=== PATIENT | male | born 1980 | race Caucasian/White ===

== ENCOUNTER 2019-06-04 05:17 | Inpatient (IN) | payer SELFPAY ==
[2019-06-04] MEDS ORDERED: NALOXONE HCL 2 MG/2 ML VIAL ONE (05:25)
[2019-06-04] MEDS ORDERED: NA CHLORIDE 0.9% 1,000 ML ONE ×2 (05:26→06:12)
[2019-06-04] MEDS ORDERED: D50W 25 GM/50 ML SYRINGE/VIAL IV ONE (05:28)
[2019-06-04] MEDS ORDERED: RSI MEDICATION KIT IV ONE (05:39)
[2019-06-04 05:41] LABS: Absolute Lymphocytes (CBC) 0.6 K/uL (0.7-4.9); Basophils % 0.3 % (0-1.3); Hematocrit 42.4 % (39.6-49.0); MPV 9.1 fL (7.6-11.3); RBC Red Blood Cell Count 4.54 M/uL (4.33-5.43)
[2019-06-04 05:55] LABS: Barbiturates NEGATIVE (NEGATIVE); Benzodiazepines POSITIVE (NEGATIVE); Cocaine NEGATIVE (NEGATIVE); METHAMPHETAM POSITIVE (NEGATIVE); Methadone NEGATIVE (NEGATIVE); Opiates NEGATIVE (NEGATIVE); Phencyclidine NEGATIVE (NEGATIVE); THC Cannibis POSITIVE (NEGATIVE)
[2019-06-04 06:05] LABS: Urine Blood TRACE (NEG); Urine Glucose NEGATIVE (NEG); Urine Protein 3+ (NEG); Urine pH 5.5 (5.0-7.0)
[2019-06-04] MEDS ORDERED: ETOMIDATE 20 MG/10 ML VIAL IV ONE (06:11)
[2019-06-04] MEDS ORDERED: SUCCINYLCHOLINE 20 MG/ML (10 ML) IV ONE (06:11)
[2019-06-04 06:17] LABS: ALT/SGPT 34 U/L (12-78); AST/SGOT 31 U/L (15-37); Alkaline Phosphatase 51 U/L (45-117); BUN Blood Urea Nitrogen 16 mg/dL (7-18); Bicarbonate 24 mmol/L (21-32); Bilirubin Direct < 0.1 mg/dL (0-0.2); Bilirubin Total 0.4 mg/dL (0.2-1.0); Glucose Level 62 mg/dL (74-106); Potassium 4.2 mmol/L (3.5-5.1); Protein, Total 7.3 g/dL (6.4-8.2); Sodium Level 146 mmol/L (136-145)
[2019-06-04 06:47] LABS: Blood Morphology Comment NOT SEEN (NOT SEEN); Platelet Estimate ADEQ; Urine White Blood Cell Casts OK
[2019-06-04 07:19] LABS: Arterial Blood Carboxyhemoglob 1.1 % (0-1.5); Blood Gas Oxyhemoglobin 97.3 % (94-97); Blood O2 Saturation 99.3 % (92-98.5)
--- NOTE | 2019-06-04 07:32 | RAD REPORT ---
EXAM DESCRIPTION: CT - Head Brain Wo Cont - 06/04/2019 7:11 am CLINICAL HISTORY: MENTAL STATUS CHANGE Headache, drowsiness COMPARISON: No comparisons TECHNIQUE: All CT scans are performed using dose optimization technique as appropriate and may inclu de automated exposure control or mA/KV adjustment according to patient size. FINDINGS: No intracranial hemorrhage, hydrocephalus or extra-axial fluid collection.No areas of brai n edema or evidence of midline shift. The paranasal sinuses and mastoids are clear. The calvarium is intact. IMPRESSION: No acute intracranial abnormality.
[2019-06-04 07:45] LABS: ALT/SGPT 30 U/L (12-78); AST/SGOT 37 U/L (15-37); Albumin 3.4 g/dL (3.4-5.0); Alkaline Phosphatase 42 U/L (45-117); Bilirubin Direct 0.1 mg/dL (0-0.2); Bilirubin Total 0.3 mg/dL (0.2-1.0); Ferritin 187.3 ng/mL (26-388); Lipase 75 U/L (73-393); Protein, Total 6.1 g/dL (6.4-8.2); Troponin (Emerg Dept Use Only) 0.02 ng/mL (0.0-0.045)
[2019-06-04 07:46] LABS: C-Reactive Protein < 2.90 mg/L (<3.00)
--- NOTE | 2019-06-04 08:03 | ER ---
Nurse's Notes [facility] Name: Gabriele Neumann Age: 39 yrs Sex: Male : 10/14/1979 Arrival Date: 06/04/2019 Time: 05:18 Bed 3 Private MD: Diagnosis: Acidosis;Hypoxemia;Altered mental status, unspecified;Pneumonia, unspecified organism Presentation: 06/03 05:04 Method Of Arrival: EMS: [facility] 05:04 Acuity: FADI 2 05:04 Chief complaint: EMS states: that pt was found in the tub of a hotel room by [facility] staff. Police were contacted along with EMS. Pt is responsive to painful stimuli only. Coronavirus screen: Proceed with normal triage. Ebola Screen: Unable to complete the Ebola screening because: The patient is disoriented. Onset of symptoms was June 04, 2019. Care prior to arrival: Medication(s) given: Normal saline infusion, 500 mL, IV initiated. 18 GA, in the left antecubital area, Glucose check: 69. 05:15 Initial Sepsis Screen: Does the patient meet any 2 criteria? RR > 20 per min. Altered bb Mental Status. Does the patient have a suspected source of infection? No. Patient's initial sepsis screen is negative. Risk Assessment: Do you want to hurt yourself or someone else? Unable to obtain. Historical: - Allergies: 05:23 Unable to obtain; fc - Home Meds: 05:23 Unable to obtain [Active]; fc - PMHx: 05:23 Unable to obtain; fc - PSHx: 05:23 Unable to obtain; fc - Immunization history:: Adult Immunizations unknown. - Social history:: Smoking status: unknown. Screenin:04 Abuse screen: Denies threats or abuse. Nutritional screening: No deficits noted. Tuberculosis screening: No symptoms or risk factors identified. 05:15 Fall Risk Secondary diagnosis (15 points) impaired mobility, IV access (20 points). bb Mental Status- Overestimates/Forgets Limitations (15 pts.). Total Rm Fall Scale indicates High Risk Score (45 or more points). Fall prevention measures have been instituted. Side Rails Up X 2 Frequent Obs/Assessments Occuring. Assessment: 05:25 General: Appears slender, unkempt, Behavior is responsive to pain. Pain: Unable to use bb pain scale. FLACC scale score is 2 out of 10. Neuro: Level of Consciousness is obtunded, Oriented to none. Cardiovascular: Heart tones S1 S2 present Capillary refill < 3 seconds Pulses are all present. Respiratory: Airway is patent Respiratory effort is labored, with retractions, Respiratory pattern is tachypnea GI: Abdomen is flat. Derm: Skin is diaphoretic. Musculoskeletal: Capillary refill < 3 seconds. 05:35 Reassessment: Dr Hoffman notified pt diaphoretic, tachypneic, labored, decision for bb intubation made respiratory notified. 05:38 Reassessment: Dr Hoffman, Monik RT, Igor RT, dee RN, Jose Luis RN, Capo RN, Javad floor technician, bb and Danyelle floor technician at bedside for intubation pt prepared with NRB, plastic cover, and glidescope at bedside all unnecessary personal stepped out of room leaving Dr Hoffman and Monik GARCIA for ETT placement. 05:44 Reassessment: ETT 7.5, 23 cm at the teeth placed with conformation of color change, bb X-ray at bedside for post intubation chest X-ray. 05:50 Reassessment: pt desatting, Dr Hoffman notified, ETT pulled back no improvement, ETT bb removed, pt bagged with BVM. 05:51 Respiratory: Respiratory effort is apneic. bb 06:05 Reassessment: Monik Ivy RT, Igor RT at bedside for reintubation. bb 06:08 Reassessment: reintubation completed, pt has 7.5 ETT with color change and bilateral bb breath sounds, 22 cm at the lips, X-ray standing by for post intubation conformation of placement. 06:41 Reassessment: Pt resting quietly, ETT in place, NG tube in place, villalpando catheter in bb place, IV sites intact, patent with fluids infusing. 06:56 Reassessment: pt to CT scan via stretcher accompanied by Capo LANDA and RT tech, on monitor bb with ventilator. 07:10 Reassessment: report given to Paulina LANDA. bb 07:15 Reassessment: Dr. Young at bedside assessing pt. jl7 07:20 Reassessment: RT Tavares at bedside assessing ventilator. jl7 07:30 General: Appears in no apparent distress. uncomfortable, Behavior is responsive to jl7 pain. Pain: Unable to use pain scale. FLACC scale score is 1 out of 10. Neuro: Level of Consciousness is responds to painful stimuli. Oriented to none. Cardiovascular: Heart tones present Patient's skin is warm and dry. Pulses are all present. Respiratory: Airway via oral intubation Respiratory effort is even, unlabored, Respiratory pattern is regular, symmetrical, Ventilator assessment: ET Tube: 7.5 at lip. 22 cm Tidal Volume: 500 Respiratory Rate: 14 FiO2: 30% PEEP: 5 HOB > 30 degrees. Derm: Skin is pink, warm \T\ dry. 08:16 Reassessment: Pt was staying at [facility] in [place], [place]; spoke to [facility] staff and jl7 they reported another person staying [facility] called and reported the pt's room door was open and he was on the floor unresponsive. Staff got to the room approximately 10 minutes later and the pt was in the bathtub barely responding to verbal stimuli and had foam in his mouth. Hotel staff were able to give the pt's name, address and phone number that he used to rent to room: [facility] / [address] [place] [address] [id number] / [facility] [phone]. 08:30 Reassessment: No changes from previously documented assessment. Neuro: Level of jl7 Consciousness is responds to painful stimuli. Cardiovascular: Patient's skin is warm and dry. Respiratory: Respiratory effort is even, unlabored, Respiratory pattern is regular, symmetrical. Derm: Skin is pink, warm \T\ dry. 09:10 Reassessment: Pt attempting to queen tube and pull at tube, ERD notified, new orders jl7 received. 09:18 Reassessment: no change in condition, ERD notified, new orders received. jl7 10:00 Reassessment: Pt appears calm and comfortable, respirations even and unlabored, no jl7 signs of distress noted. 11:00 Reassessment: Patient appears in no apparent distress at this time. No changes from jl7 previously documented assessment. Vital Signs: 05:25 BP 118 / 68; Pulse 100; Resp 28; Temp 99.4(A); Pulse Ox 97% on 2 lpm NC; Weight 90.72 bb kg; Height 6 ft. 1 in. (185.42 cm) (R); 05:38 BP 119 / 53; Pulse 104; Resp 27 S; Pulse Ox 97% on 2 lpm NC; bb 05:42 BP 113 / 61; Pulse 102; Resp 25 S; Pulse Ox 97% on 15% Non-rebreather mask; bb 05:45 BP 122 / 68; Pulse 91; Resp 35 S; Pulse Ox 100% on 15% BVM; bb 05:56 BP 118 / 58; Pulse 98; Resp 18 A; Pulse Ox 67% on ETT vent; bb 06:05 BP 126 / 66; Pulse 101; Resp 23; Pulse Ox 100% on 100% FiO2 ETT vent; bb 06:15 BP 125 / 63; Pulse 100; Resp 19 A; Pulse Ox 100% on 100% FiO2 ETT vent; bb 06:35 BP 122 / 66; Pulse 98; Resp 20; Pulse Ox 100% on 100% FiO2 ETT vent; bb 06:45 BP 127 / 71; Pulse 96; Resp 17 A; Pulse Ox 100% on 100% FiO2 ETT vent; bb 07:00 BP 127 / 79; Pulse 96; Resp 19; Pulse Ox 100% on ETT vent; jl7 07:15 BP 118 / 75; Pulse 91; Resp 19 A; Temp 97.7(C); Pulse Ox 100% on ETT vent; jl7 07:30 BP 123 / 73; Pulse 89; Resp 16 A; Temp 97.7(C); Pulse Ox 100% on 30% FiO2 ETT vent; jl7 07:45 BP 120 / 73; Pulse 86; Resp 16; Temp 97.7; Pulse Ox 100% ; jl7 08:00 BP 118 / 76; Pulse 85; Resp 16 A; Temp 97.6(C); Pulse Ox 99% on 30% FiO2 ETT vent; jl7 08:15 BP 116 / 76; Pulse 83; Resp 16; Temp 97.6; Pulse Ox 99% on 30% FiO2 ETT vent; jl7 08:30 BP 118 / 76; Pulse 82; Resp 16; Temp 97.6; Pulse Ox 99% ; jl7 08:45 BP 114 / 78; Pulse 82; Resp 15; Temp 97.6; Pulse Ox 98% ; jl7 09:00 BP 116 / 86; Pulse 87; Resp 17 A; Temp 97.6(C); Pulse Ox 98% on 30% FiO2 ETT vent; jl7 09:15 BP 116 / 73; Pulse 86; Resp 14; Temp 97.5; Pulse Ox 95% ; jl7 09:30 BP 117 / 77; Pulse 85; Resp 14; Temp 97.6; Pulse Ox 94% ; jl7 09:45 BP 113 / 72; Pulse 86; Resp 17; Temp 97.6; Pulse Ox 94% ; jl7 10:00 BP 111 / 77; Pulse 78; Resp 17 A; Temp 97.7(C); Pulse Ox 95% on 30% FiO2 ETT vent; jl7 10:15 BP 111 / 79; Pulse 85; Resp 15; Temp 97.7; Pulse Ox 96% ; jl7 10:30 BP 113 / 76; Pulse 85; Resp 15; Temp 97.7; Pulse Ox 95% ; jl7 10:45 BP 119 / 78; Pulse 82; Resp 13; Temp 97.8; Pulse Ox 97% ; jl7 11:00 BP 115 / 78; Pulse 84; Resp 13 A; Temp 97.8(C); Pulse Ox 96% on 30% FiO2 ETT vent; jl7 11:15 BP 123 / 79; Pulse 82; Resp 16; Temp 97.9; Pulse Ox 96% ; jl7 11:30 BP 122 / 80; Pulse 84; Resp 16; Temp 98; Pulse Ox 96% ; jl7 11:45 BP 121 / 70; Pulse 85; Resp 15; Temp 98; Pulse Ox 98% ; jl7 05:25 Body Mass Index 26.39 (90.72 kg, 185.42 cm) bb Carol Coma Score: 05:34 Eye Response: none(1). Verbal Response: none(1). Motor Response: withdraws from bb pain(4). Total: 6. ED Course: 05:04 No provider procedures requiring assistance completed. Maintain EMS IV. Dressing fc intact. Good blood return noted. Site clean \T\ dry. Gauge \T\ site: 18 gauge to left a/c. 05:04 Arm band placed on Patient placed in an exam room, on a stretcher. fc 05:04 Patient has correct armband on for positive identification. Placed in gown. Bed in low fc position. Call light in reach. Side rails up X2. monitor and storage bin tender on. Pulse ox on. NIBP on. 05:18 Patient arrived in ED. ds1 05:18 Ramiro Hoffman MD is Attending Physician. tw4 05:18 EKG done, by diesel technician. reviewed by Ramiro Hoffman MD. at1 05:22 Triage completed. fc 05:26 Julius Pyle, RN is Primary Nurse. rv 05:26 Acetaminophen Sent. ds4 05:26 Basic Metabolic Panel Sent. ds4 05:26 CBC with Diff Sent. ds4 05:26 ETOH Level Sent. ds4 05:26 Hepatic Function Sent. ds4 05:26 PT-INR Sent. ds4 05:26 Ptt, Activated Sent. ds4 05:26 Salicylate Sent. ds4 05:45 Missed attempt(s): 18 gauge in right forearm. Bleeding controlled, band aid applied, ds4 catheter tip intact. 06:00 Inserted saline lock: 18 gauge in right ,using aseptic technique. by Jose Luis LANDA. bb 06:15 Villalpando cath inserted, using sterile technique, 16 Fr., by ED staff, balloon inflated, to rv gravity drainage, other BY JOSE LUIS REY Patient tolerated well. NGT: inserted 18 Fr. via left nare. verified placement of air over stomach, verified return of gastric contents, to intermittent suction. Returned gastric contents. Patient tolerated well. 07:10 Report given to Paulina LANDA. bb 07:12 CT Head Brain wo Cont In Process Unspecified. EDMS 07:16 Attending Physician role handed off by Ramiro Hoffman MD rn 07:16 Osbaldo Young MD is Attending Physician. rn 07:21 CXR XRAY In Process Unspecified. EDMS 07:21 CXR XRAY In Process Unspecified. EDMS 08:01 Ariadna Fuentes MD is Hospitalizing Provider. rn 08:35 Throat Culture Sent. jl7 11:45 Patient admitted, IV remains in place. intact, No redness/swelling at site. jl7 Administered Medications: 05:20 Drug: NARcan 1 mg Route: IVP; Site: left antecubital; rv 06:58 Follow up: Response: No change in condition bb 05:26 Drug: D50W 50 ml Route: IVP; Site: left antecubital; rv 06:58 Follow up: Response: Blood sugar is elevated bb 05:27 Drug: NS 0.9% 1000 ml Route: IV; Rate: 1 bolus; Site: left antecubital; rv 05:44 Drug: Etomidate 20 mg Route: IVP; Site: left antecubital; bb 06:58 Follow up: Response: No adverse reaction bb 05:44 Drug: Succinylcholine 100 mg Route: IVP; Site: left antecubital; bb 06:59 Follow up: Response: No adverse reaction bb 06:05 Drug: Etomidate 20 mg Route: IVP; Site: left antecubital; bb 06:58 Follow up: Response: No adverse reaction bb 06:05 Drug: Succinylcholine 100 mg Route: IVP; Site: left antecubital; bb 06:58 Follow up: Response: No adverse reaction bb 09:05 Drug: Rocephin 1 grams Route: IV; Rate: calculated rate; Site: left antecubital; jl7 09:07 Follow up: Response: No adverse reaction; IV Status: Completed infusion jl7 09:08 Drug: Zithromax 500 mg Route: IVPB; Infused Over: 1 hrs; Site: left antecubital; jl7 10:08 Follow up: Response: No adverse reaction; IV Status: Completed infusion jl7 09:10 Drug: Versed 2 mg Route: IVP; Site: left antecubital; jl7 09:15 Follow up: Response: No adverse reaction; No change in condition jl7 09:18 Drug: fentaNYL (PF) 75 mcg Route: IVP; Site: left antecubital; jl7 09:43 Follow up: Response: No adverse reaction jl7 09:31 Drug: Propofol 5 mcg/kg/min Route: IV; Rate: calculated rate; Site: right antecubital; jl7 11:45 Follow up: IV Status: Infusion continued upon admission jl7 Ventilator: 06:15 Fi02: 100%; Rate: 14min; T.V.: 510ml; Peep: 5cm; ET tube: 7.5 mm (Oral); bb 07:24 Fi02: 30%; Rate: 14min; T.V.: 520ml; Peep: 5cm; ET tube: 7.5 mm (Oral); jl7 Outcome: 08:02 Decision to Hospitalize by Provider. rn 11:45 Admitted to ICU accompanied by nurse, accompanied by reyna, via stretcher, room 8, with jl7 oxygen, on monitor, with chart, Report called to Lena, RN 11:45 Condition: stable 11:45 Discharge instructions given to Pt unresponsive, sedated and intubated 12:25 Patient left the ED. jl7 Signatures: Dispatcher [employer] EDLaly Mejia, RN RN Svetlana Hood ds1 Octavia Mario RN RN Osbaldo Salmeron MD MD rn Gonzales, Amanda, software systems engineer EKG Tat1 Javad Riley ds4 Paulina Singh RN RN Ramiro Miranda MD MD tw4 Julius Pyle RN RN rv Corrections: (The following items were deleted from the chart) 06:48 05:50 Reassessment: pt desatting, Dr Hoffman notified, ETT pulled back no improvement, bb ETT removed, pt bagged with BVM bb 09:58 07:00 Reassessment: Dr. Young at bedside assessing pt jl7 jl7 10:05 08:00 BP 118 / 76; Pulse 85bpm; Resp 16bpm; Pulse Ox 99%; Temp 97.6F; jl7 jl7
--- NOTE | 2019-06-04 08:03 | EDPHYS ---
Physician Documentation [facility] Name: Gabriele Neumann Age: 39 yrs Sex: Male : 10/14/1979 Arrival Date: 06/04/2019 Time: 05:18 Bed 3 Private MD: ED Physician Osbaldo Young HPI: 06/03 05:58 This 39 yrs old Male presents to ER via EMS with complaints of Drug Abuse. tw4 05:58 The patient presents with decreased mental status, decreased responsiveness. Onset: The tw4 symptoms/episode began/occurred just prior to arrival. Possible causes: unknown. Associated signs and symptoms: The patient has no apparent associated signs or symptoms. The patient has not experienced similar symptoms in the past. EMS found patient in a hotel room unresponsive no additional history available. Historical: - Allergies: 05:23 Unable to obtain; fc - Home Meds: 05:23 Unable to obtain [Active]; fc - PMHx: 05:23 Unable to obtain; fc - PSHx: 05:23 Unable to obtain; fc - Immunization history:: Adult Immunizations unknown. - Social history:: Smoking status: unknown. Exam: 06:16 Constitutional: The patient appears unresponsive tw4 06:24 Head/Face: Normocephalic, atraumatic. tw4 06:24 ENT: Nares patent. No nasal discharge, no septal abnormalities noted. Tympanic membranes are normal and external auditory canals are clear. Oropharynx with no redness, swelling, or masses, exudates, or evidence of obstruction, uvula midline. Mucous membranes moist. Chest/axilla: Normal chest wall appearance and motion. Nontender with no deformity. No lesions are appreciated. Cardiovascular: Regular rate and rhythm with a normal S1 and S2. No gallops, murmurs, or rubs. Normal PMI, no JVD. No pulse deficits. 06:24 Abdomen/GI: Soft, non-tender, with normal bowel sounds. No distension or tympany. No guarding or rebound. No evidence of tenderness throughout. Back: No spinal tenderness. No costovertebral tenderness. Full range of motion. MS/ Extremity: Pulses equal, no cyanosis. Neurovascular intact. Full, normal range of motion. 06:24 Eyes: Pupils: right pupil is approximately 2 mm(s), left pupil is approximately 2 mm(s). 06:24 Respiratory: the patient does not display signs of respiratory distress, Respirations: Breath sounds: rhonchi, are scattered. 06:24 Neuro: Orientation: unable to test, the patient is comatose, Mentation: sleepy, responsive to pain, Cranial nerves: Gag reflex absent. Cerebellar function: unable to test, the patient is comatose. Vital Signs: 05:25 BP 118 / 68; Pulse 100; Resp 28; Temp 99.4(A); Pulse Ox 97% on 2 lpm NC; Weight 90.72 bb kg; Height 6 ft. 1 in. (185.42 cm) (R); 05:38 BP 119 / 53; Pulse 104; Resp 27 S; Pulse Ox 97% on 2 lpm NC; bb 05:42 BP 113 / 61; Pulse 102; Resp 25 S; Pulse Ox 97% on 15% Non-rebreather mask; bb 05:45 BP 122 / 68; Pulse 91; Resp 35 S; Pulse Ox 100% on 15% BVM; bb 05:56 BP 118 / 58; Pulse 98; Resp 18 A; Pulse Ox 67% on ETT vent; bb 06:05 BP 126 / 66; Pulse 101; Resp 23; Pulse Ox 100% on 100% FiO2 ETT vent; bb 06:15 BP 125 / 63; Pulse 100; Resp 19 A; Pulse Ox 100% on 100% FiO2 ETT vent; bb 06:35 BP 122 / 66; Pulse 98; Resp 20; Pulse Ox 100% on 100% FiO2 ETT vent; bb 06:45 BP 127 / 71; Pulse 96; Resp 17 A; Pulse Ox 100% on 100% FiO2 ETT vent; bb 07:00 BP 127 / 79; Pulse 96; Resp 19; Pulse Ox 100% on ETT vent; jl7 07:15 BP 118 / 75; Pulse 91; Resp 19 A; Temp 97.7(C); Pulse Ox 100% on ETT vent; jl7 07:30 BP 123 / 73; Pulse 89; Resp 16 A; Temp 97.7(C); Pulse Ox 100% on 30% FiO2 ETT vent; jl7 07:45 BP 120 / 73; Pulse 86; Resp 16; Temp 97.7; Pulse Ox 100% ; jl7 08:00 BP 118 / 76; Pulse 85; Resp 16 A; Temp 97.6(C); Pulse Ox 99% on 30% FiO2 ETT vent; jl7 08:15 BP 116 / 76; Pulse 83; Resp 16; Temp 97.6; Pulse Ox 99% on 30% FiO2 ETT vent; jl7 08:30 BP 118 / 76; Pulse 82; Resp 16; Temp 97.6; Pulse Ox 99% ; jl7 08:45 BP 114 / 78; Pulse 82; Resp 15; Temp 97.6; Pulse Ox 98% ; jl7 09:00 BP 116 / 86; Pulse 87; Resp 17 A; Temp 97.6(C); Pulse Ox 98% on 30% FiO2 ETT vent; jl7 09:15 BP 116 / 73; Pulse 86; Resp 14; Temp 97.5; Pulse Ox 95% ; jl7 09:30 BP 117 / 77; Pulse 85; Resp 14; Temp 97.6; Pulse Ox 94% ; jl7 09:45 BP 113 / 72; Pulse 86; Resp 17; Temp 97.6; Pulse Ox 94% ; jl7 10:00 BP 111 / 77; Pulse 78; Resp 17 A; Temp 97.7(C); Pulse Ox 95% on 30% FiO2 ETT vent; jl7 10:15 BP 111 / 79; Pulse 85; Resp 15; Temp 97.7; Pulse Ox 96% ; jl7 10:30 BP 113 / 76; Pulse 85; Resp 15; Temp 97.7; Pulse Ox 95% ; jl7 10:45 BP 119 / 78; Pulse 82; Resp 13; Temp 97.8; Pulse Ox 97% ; jl7 11:00 BP 115 / 78; Pulse 84; Resp 13 A; Temp 97.8(C); Pulse Ox 96% on 30% FiO2 ETT vent; jl7 11:15 BP 123 / 79; Pulse 82; Resp 16; Temp 97.9; Pulse Ox 96% ; jl7 11:30 BP 122 / 80; Pulse 84; Resp 16; Temp 98; Pulse Ox 96% ; jl7 11:45 BP 121 / 70; Pulse 85; Resp 15; Temp 98; Pulse Ox 98% ; jl7 05:25 Body Mass Index 26.39 (90.72 kg, 185.42 cm) bb Carol Coma Score: 05:34 Eye Response: none(1). Verbal Response: none(1). Motor Response: withdraws from bb pain(4). Total: 6. Ventilator: 06:15 Fi02: 100%; Rate: 14min; T.V.: 510ml; Peep: 5cm; ET tube: 7.5 mm (Oral); bb 07:24 Fi02: 30%; Rate: 14min; T.V.: 520ml; Peep: 5cm; ET tube: 7.5 mm (Oral); jl7 Procedures: 06:24 Intubation: Ventilated with 100% NRB prior to procedure. Intubated orally using # 4 tw4 Mike blade with 7.5 mm ETT. Successful on second attempt. Tube secured with ETT trammell Placement verified by CXR, Patient tolerated well. MDM: 05:18 Patient medically screened. tw4 06:18 Differential Diagnosis: alcohol intoxication, hypoglycemia, intracranial bleed, tw4 overdose, pneumonia. Data reviewed: vital signs, nurses notes. Counseling: I had a detailed discussion with the patient and/or guardian regarding: the historical points, exam findings, and any diagnostic results supporting the discharge/admit diagnosis. 06:24 Data interpreted: Pulse oximetry: Interpretation: normal. ED course: Pt intubated tw4 secondary to airway protection and decreased GCS.. 06:43 Test interpretation: by ED physician or midlevel provider: plain radiologic studies. ED tw4 course: Pt required second intubation after ETT was removed due to patients O2 desaturation and bradycardia. ED course: . 07:17 ED course: Pt signed out to me by Dr. Hoffman, report was suspected drug overdose, rn intubated, pending ct head and labs. . 07:24 ED course: Pt responds to painful stimulation, initial ABG acidotic with hypercarbia, rn breathing above vent, and will repeat ABG in about 30 min for reeval. . 06/03 05:20 Order name: Urine Dipstick--Ancillary (enter results); Complete Time: 06:29 4 06/03 05:25 Order name: Acetaminophen; Complete Time: 06:29 4 06/03 05:25 Order name: Basic Metabolic Panel; Complete Time: 06:29 4 06/03 05:25 Order name: CBC with Diff; Complete Time: 07:07 4 06/03 05:25 Order name: ETOH Level; Complete Time: 06:29 06/03 05:25 Order name: Hepatic Function; Complete Time: 06:29 06/03 05:25 Order name: PT-INR; Complete Time: 05:50 06/03 05:25 Order name: Ptt, Activated; Complete Time: 05:50 06/03 05:25 Order name: Salicylate; Complete Time: 06:29 06/03 05:25 Order name: Urine Drug Screen; Complete Time: 06:29 06/03 05:33 Order name: Glucose, Ancillary Testing; Complete Time: 05:50 EDMS 06/03 06:20 Order name: Blood Culture Adult (2) 06/03 06:20 Order name: C-Reactive Protein; Complete Time: 07:50 06/03 06:20 Order name: COVID-19; Complete Time: 12:06 06/03 06:20 Order name: D-Dimer; Complete Time: 07:07 06/03 06:20 Order name: Ferritin; Complete Time: 07:50 06/03 06:20 Order name: Flu; Complete Time: 07:33 06/03 06:20 Order name: Lactate; Complete Time: 07:07 06/03 06:20 Order name: LFT's; Complete Time: 07:50 06/03 06:20 Order name: Lipase; Complete Time: 07:50 06/03 06:20 Order name: Procalcitonin; Complete Time: 07:50 06/03 06:20 Order name: Strep; Complete Time: 07:07 06/03 06:20 Order name: Troponin (emerg Dept Use Only); Complete Time: 07:50 06/03 06:20 Order name: Urine Microscopic Only 06/03 06:29 Order name: ABG; Complete Time: 07:50 06/03 06:47 Order name: CBC Smear Scan; Complete Time: 07:07 EDMS 06/03 06:50 Order name: Glucose, Ancillary Testing; Complete Time: 07:07 EDMS 06/03 05:25 Order name: EKG; Complete Time: 05:26 06/03 05:25 Order name: EKG - Nurse/Tech; Complete Time: 05:26 06/03 05:25 Order name: IV Saline Lock; Complete Time: 05:26 06/03 05:25 Order name: Labs collected and sent; Complete Time: 05:26 06/03 05:25 Order name: Urine Dipstick-Ancillary (obtain specimen); Complete Time: 05:26 06/03 05:25 Order name: CT Head Brain wo Cont; Complete Time: 07:33 06/03 05:28 Order name: CXR XRAY; Complete Time: 12:06 06/03 06:20 Order name: CXR XRAY; Complete Time: 12:06 06/03 06:20 Order name: EKG; Complete Time: 06:22 06/03 06:20 Order name: Cardiac monitoring; Complete Time: 06:42 06/03 06:20 Order name: Droplet/Contact Precautions; Complete Time: 06:42 06/03 06:20 Order name: EKG - Nurse/Tech; Complete Time: 06:42 06/03 06:20 Order name: Jj; Complete Time: 06:42 06/03 06:20 Order name: IV Start; Complete Time: 06:42 06/03 06:20 Order name: Labs collected and sent; Complete Time: 06:42 06/03 06:20 Order name: O2 Per Protocol; Complete Time: 06:42 06/03 07:00 Order name: Throat Culture EDWY 06/03 08:01 Order name: ABG; Complete Time: 12:06 7 06/03 06:20 Order name: O2 Sat Monitoring; Complete Time: 06:42 06/03 06:20 Order name: Urine Dipstick-Ancillary (obtain specimen); Complete Time: 06:43 tw4 EC:43 Rate is 107 beats/min. Rhythm is regular, Sinus tachycardia. QRS [place] is Normal. RI tw4 interval is normal. QRS interval is normal. QT interval is normal. No Q waves. T waves are Normal. Clinical impression: Sinus tachycardia. Interpreted by me. Reviewed by me. Administered Medications: 05:20 Drug: NARcan 1 mg Route: IVP; Site: left antecubital; rv 06:58 Follow up: Response: No change in condition bb 05:26 Drug: D50W 50 ml Route: IVP; Site: left antecubital; rv 06:58 Follow up: Response: Blood sugar is elevated bb 05:27 Drug: NS 0.9% 1000 ml Route: IV; Rate: 1 bolus; Site: left antecubital; rv 05:44 Drug: Etomidate 20 mg Route: IVP; Site: left antecubital; bb 06:58 Follow up: Response: No adverse reaction bb 05:44 Drug: Succinylcholine 100 mg Route: IVP; Site: left antecubital; bb 06:59 Follow up: Response: No adverse reaction bb 06:05 Drug: Etomidate 20 mg Route: IVP; Site: left antecubital; bb 06:58 Follow up: Response: No adverse reaction bb 06:05 Drug: Succinylcholine 100 mg Route: IVP; Site: left antecubital; bb 06:58 Follow up: Response: No adverse reaction bb 09:05 Drug: Rocephin 1 grams Route: IV; Rate: calculated rate; Site: left antecubital; jl7 09:07 Follow up: Response: No adverse reaction; IV Status: Completed infusion jl7 09:08 Drug: Zithromax 500 mg Route: IVPB; Infused Over: 1 hrs; Site: left antecubital; jl7 10:08 Follow up: Response: No adverse reaction; IV Status: Completed infusion jl7 09:10 Drug: Versed 2 mg Route: IVP; Site: left antecubital; jl7 09:15 Follow up: Response: No adverse reaction; No change in condition jl7 09:18 Drug: fentaNYL (PF) 75 mcg Route: IVP; Site: left antecubital; jl7 09:43 Follow up: Response: No adverse reaction jl7 09:31 Drug: Propofol 5 mcg/kg/min Route: IV; Rate: calculated rate; Site: right antecubital; jl7 11:45 Follow up: IV Status: Infusion continued upon admission jl7 Disposition: 08:01 Critical Care:. rn Disposition: 06/04/19 08:02 Hospitalization ordered by Ariadna Fuentes for Inpatient Admission. Preliminary diagnosis are Acidosis, Hypoxemia, Altered mental status, unspecified, Pneumonia, unspecified organism. - Bed requested for Intensive Care Unit. - Status is Inpatient Admission. jl7 - Condition is Fair. - Problem is new. - Symptoms have improved. Critical care time excluding procedures: 08:01 Critical care time: Bedside Care: 25 minutes, Consultation: 5 minutes. Total time: 30 rn minutes Signatures: Dispatcher [employer] EDWY Laly Potts RN Octavia Manjarrez RN RN bb Nieto, Roman, MD MD rn Page, Corey, PA PA cp Leal, Jahala, RN RN jl7 Ramiro Hoffman MD MD tw4 Azucena Nielsen Ronaldo RN RN rv Corrections: (The following items were deleted from the chart) 06:47 06:22 CBC+H.LAB.BRZ ordered. [facility] EDWY 06:47 06:22 PROTIME (+INR)+COAG.LAB.BRZ ordered. [facility] ED[facility] 06:47 06:22 PTT, ACTIVATED+COAG.LAB.BRZ ordered. [facility] EDW[facility] 10:31 08:02 Hospitalization Ordered by Ariadna Fuentes MD for Inpatient Admission. Preliminary eb diagnosis is Acidosis; Hypoxemia; Altered mental status, unspecified; Pneumonia, unspecified organism. Bed requested for Intensive Care Unit. Status is Inpatient Admission. Condition is Fair. Problem is new. Symptoms have improved. rn 12:25 10:31 06/04/2019 08:02 Hospitalization Ordered by Ariadna Fuentes MD for Inpatient jl7 Admission. Preliminary diagnosis is Acidosis; Hypoxemia; Altered mental status, unspecified; Pneumonia, unspecified organism. Bed requested for Intensive Care Unit. Status is Inpatient Admission. Condition is Fair. Problem is new. Symptoms have improved. eb
[2019-06-04] MEDS ORDERED: CEFTRIAXONE/SWI 1gm 1 GM/10 ML SYR ONE (08:11)
[2019-06-04 08:12] LABS: Arterial Blood Carboxyhemoglob 1.4 % (0-1.5); Blood O2 Saturation 96.5 % (92-98.5)
--- NOTE | 2019-06-04 08:51 | P.HP ---
Certification for Inpatient Patient admitted to: Inpatient With expected LOS: >2 Midnights Practitioner: I am a practitioner with admitting privileges, knowledge of patient current condition, hospital course, and medical plan of care. Services: Services provided to patient in accordance with Admission requirements found in Title 42 Section 412.3 of the Code of Federal Regulations Patient History Date of Service: 06/04/19 Reason for admission: Drug overdose History of Present Illness: History is limited due to patient's medical condition. Due to current pandemic no family is at the bedside either. Information is gathered from previous records ER physician and staff. Patient is an unidentified male came in from from a hotel via EMS for being diaphoretic tachypneic tachycardic. Patient apparently has suspected drug overdose with Ativan. Patient was altered and subsequently required intubation. [place] [address]. UDS was positive for benzodiazepines, amphetamines and marijuana. Tylenol level was negative as well as the alcohol level. His influenza screen pro calcitonin and lactate were negative. ABG showed acidosis with pH of 7.1. Chest x-ray showed some right lobe changes. Patient had to be reintubated due to hypoxia and bradycardia. Repeat chest x-ray showed improvement. Head CT scan was also negative. Due to his symptoms and chest x-ray changes patient is also being tested for COVID 19 and is a person under investigation. Patient was referred for admission Allergies No Known Allergies Allergy (Unverified 06/04/19 09:24) Home medications list reviewed: Yes - Past Medical/Surgical History Past Medical History: Unable to obtain Past Surgical History: Unable to obtain - Social History Smoking Status: Unknown if ever smoked Review of Systems is unable to be obtained Respiratory: As per HPI Neurological: As per HPI Physical Examination - Vital Signs Temperature: 99.4 F Blood Pressure: 118/68 Pulse: 100 Respirations: 28 Pulse Ox (%): 97 - Physical Exam General: Acute distress (Respiratory), Other (Does respond to stimulus) HEENT: Atraumatic, PERRLA, Sclerae nonicteric Neck: Supple, JVD not distended Respiratory: Diminished Cardiovascular: No edema, Regular rate/rhythm, Normal S1 S2 Gastrointestinal: Normal bowel sounds, Soft and benign, Non-distended Integumentary: No rashes Neurological: Normal tone, Normal affect - Studies Laboratory Data (last 24 hrs) 06/04/19 06:35: Total Bilirubin 0.3, AST 37, ALT 30, Alkaline Phosphatase 42 L, Lipase 75 06/04/19 06:20: WBC Cancelled, Hgb Cancelled, Hct Cancelled, Plt Count Cancelled 06/04/19 05:15: PT Cancelled, INR Cancelled, APTT Cancelled 06/04/19 05:15: PT 11.8, INR 1.00, APTT 29.2 06/04/19 05:15: WBC 13.8 H, Hgb 14.7, Hct 42.4, Plt Count 281 06/04/19 05:15: Sodium 146 H, Potassium 4.2, BUN 16, Creatinine 1.95 H, Glucose 62 L, Total Bilirubin 0.4, AST 31, ALT 34, Alkaline Phosphatase 51 Microbiology Data (last 24 hrs): 06/04/19 06:30 Nasopharnyx Influenza Type A Antigen Screen - Final 06/04/19 06:30 Nasopharnyx Influenza Type B Antigen Screen - Final 06/04/19 06:30 Throat Group A Streptococcus Rapid Screen - Final Imagings Data: EXAM DESCRIPTION: CT - Head Brain Wo Cont - 06/04/2019 7:11 am CLINICAL HISTORY: MENTAL STATUS CHANGE Headache, drowsiness COMPARISON: No comparisons TECHNIQUE: All CT scans are performed using dose optimization technique as appropriate and may include automated exposure control or mA/KV adjustment according to patient size. FINDINGS: No intracranial hemorrhage, hydrocephalus or extra-axial fluid collection.No areas of brain edema or evidence of midline shift. The paranasal sinuses and mastoids are clear. The calvarium is intact. IMPRESSION: No acute intracranial abnormality. Chest x-ray no official report shows right-sided pneumonia. Repeat chest x-ray shows improvement Assessment and Plan - Plan 39-year-old maleWith: 1. Acute respiratory failure with hypoxia and hyper caffeine. Patient currently on mechanical ventilation. Likely secondary to drug overdose versus possible COVID19. ABG showed pH of 7.1. Chest x-ray shows some right lobe changes. Possible pneumonia. Will consult pulmonology for ventilation management 2. Acute metabolic encephalopathy. likely secondary to drug overdose. Patient is responsive on the ventilator. UDS positive for benzos amphetamines and marijuana. 3. Person under investigation for COVID 19. patient has respiratory failure low-grade fever hypoxia x-ray showing right lobe pneumonia. Testing has been sent out. Will place on droplet precautions. 4. Drug overdose with benzodiazepines amphetamines and marijuana. Tylenol level is negative. Alcohol level is negative. Currently intubated breathing over the vent but will require sedation. 5. Right lobe pneumonia likely secondary to aspiration versus COVID19. Start on antibiotics with azithromycin and Rocephin. 6. Acute kidney injury. Likely due to prerenal azotemia. Consult nephrology. Continue with IV fluids. Monitor creatinine. Avoid NSAIDs. 7. Hypoglycemia. Patient is given amp of D50. Will monitor 8. DVT prophylaxis with Lovenox. And GI prophylaxis with famotidine - Advance Directives Does patient have a Living Will: No Does patient have a Durable POA for Healthcare: No - Code Status/Comfort Care Code Status Assessed: Yes
[2019-06-04] MEDS ORDERED: AZITHROMYCIN IV 500 MG in NA CHLORIDE 0.9% 250 ML IVPB ONE (09:00)
[2019-06-04] MEDS ORDERED: MIDAZOLAM HCL 2 MG/2 ML INJ ONE (09:08)
[2019-06-04] MEDS ORDERED: FENTANYL CITR 100 MCG/2 ML ONE (09:28)
[2019-06-04] MEDS ORDERED: propofoL 1,000 MG/100 ML VIAL IV ONE (09:31)
[2019-06-04] MEDS ORDERED: AZITHROMYCIN IV 500 MG in NA CHLORIDE 0.9% 250 ML IVPB SCH (10:55)
[2019-06-04] MEDS ORDERED: ACETAMINOPHEN 500 MG TAB FT PRN (10:55)
[2019-06-04] MEDS ORDERED: NA CHLORIDE 0.9% 250 ML IV PRN (10:55)
[2019-06-04] MEDS ORDERED: MIDAZOLAM HCL 2 MG/2 ML INJ IV PRN (10:55)
[2019-06-04] MEDS ORDERED: ONDANSETRON 4 MG/2 ML VIAL IV PRN (10:55)
[2019-06-04] MEDS ORDERED: CEFTRIAXONE 1 GM/NS 50 ML 1 GM/50 ML BAG IV SCH (10:55)
[2019-06-04] MEDS ORDERED: HALOPERIDOL LACT 5 MG/ML INJ IV PRN (10:55)
--- NOTE | 2019-06-04 12:10 | RAD REPORT ---
EXAM DESCRIPTION: RAD - Chest Single View - 06/04/2019 7:21 am CLINICAL HISTORY: SOB Chest pain. COMPARISON: Chest Single View dated 06/04/2019 FINDINGS: Portable technique limits examination quality. The lungs are underinflated with bilateral pulmonary opacities probably representing mild pulmonary e laurie. The heart is normal in size. Calices distention of the stomach noted.
--- NOTE | 2019-06-04 12:11 | RAD REPORT ---
EXAM DESCRIPTION: RAD - Chest Single View - 06/04/2019 7:21 am CLINICAL HISTORY: COUGH Chest pain. COMPARISON: Chest Single View dated 06/04/2019 FINDINGS: Portable technique limits examination quality. Tip of the ET tube is above the carmen. Mild atelectasis is present in the left mid lung. The heart i s normal in size. No displaced fractures.
[2019-06-04] MEDS: CEFTRIAXONE/SWI 1gm 1 GM/10 ML SYR IVP SCH (13:00)
[2019-06-04] MEDS: NA CHLORIDE 0.9% 1,000 ML IV SCH ×2 (13:25→23:13)
[2019-06-04] MEDS: FENTANYL CITR 100 MCG/2 ML IV PRN ×3 (13:27→21:12)
[2019-06-04] MEDS: FAMOTIDINE 20 MG/2 ML VIAL IV SCH (13:28)
[2019-06-04 13:47] LABS: Urine Bacteria 20-50 /HPF (NONE SEEN); Urine Culture Reflex Order REFLEXED
[2019-06-04] MEDS: propofoL 1,000 MG/100 ML VIAL IV PRN ×2 (15:36→23:13)
[2019-06-04] MEDS: OCTREOTIDE 500 MCG in NA CHLORIDE 0.9% 500 ML IV SCH (16:13)
--- NOTE | 2019-06-04 16:20 | RAD REPORT ---
EXAM DESCRIPTION: CT - Abdomen Pelvis Wo Contrast - 06/04/2019 4:01 pm CLINICAL HISTORY: Abdominal pain. gi bleed COMPARISON: No comparisons TECHNIQUE: CT imaging of the abdomen and pelvis was performed without contrast. Solid organ, bowel a nd vascular assessment is limited due to lack of IV and oral contrast. All CT scans are performed using dose optimization technique as appropriate and may include automated exposure control or mA/KV adjustment according to patient size. FINDINGS: Airspace opacity is identified in the right posterior gutter which may represent aspiratio n or infiltrate/ pneumonia. Enteric tube tip is just entering the stomach. The liver, spleen, pancreas, adrenal glands and kidneys are within normal limits for a limited non-co ntrast examination. No bowel obstruction, free air, free fluid or abscess. The appendix is normal. The osseous structures are within normal limits.Jj catheter noted. IMPRESSION: No acute intra-abdominal or pelvic findings. Airspace opacity in the posterior right base may represent aspiration or infiltrate/ pneumonia. A limited non-contrast examination was performed as detailed.
[2019-06-04] MEDS: PANTOPRAZOLE INJ 80 MG in NA CHLORIDE 0.9% 250 ML IV SCH (16:43)
[2019-06-04 16:50] LABS: Potassium 4.1 mmol/L (3.5-5.1)
--- NOTE | 2019-06-04 17:32 | CON ---
Date of Consultation: 06/04/2019 Reason For Consultation: Acute kidney injury. History Of Present Illness: Mr. Dunbar is a 39-year-old male who was brought to the emergency room from a hotel in the area with suspected overdose. The patient is taking multiple medications includi ng illicit substances such as methamphetamine and prescribed Valium. The patient ingested all these when police entered the property. The patient was intubated in the emergency room for altered mental status and inability to protect airway. A consultation was requested as the patient did have a crea tinine of 1.95 on admission. There are no historical labs. Patient is currently sedated, unable to give a significant history, but when he was awake, he is able to give a background history from a soc ial perspective to the staff here on the floor. The patient remains intubated, this has been complic ated by hematemesis after his intubation, unclear if it is an acute bleed versus trauma. However, he is having workup in that regard. Since admission, the patient has received multiple medications, th ose were reviewed. I did not see any NSAID. The patient did not undergo any iodinated contrast imag ing studies. Currently seen at the bedside. Remains ventilated and sedated. No acute distress at this time, read y for transportation to CT. Past Medical History: Unknown. Family History: Unknown. Physical Examination: Vital Signs: Blood pressure 127/86, pulse 85, temperature 97.9. Input and output not recorded, but it was told the patient did have 1000 mL of urine output since Jj was inserted. General: No acute distress. Intubated. Heart: Regular rate and rhythm. No murmurs, rubs, gallops. Lungs: Transmitted sounds noted. Abdomen: Soft, nontender. No peritoneal signs. Extremities: No significant edema. Laboratory Data: Sodium 146, potassium 4.2, chloride 115, CO2 14, BUN 16, creatinine 1.95, glucose 6 2. Hepatic panel is mostly within normal limits. CBC showing WBC count 13.8 with a neutrophilic chacorta ft. Blood gas shows respiratory acidosis. UA, trace blood, 5-10 rbc's, 20-50 bacteria, 3+ protein. Toxicology positive for amphetamine, benzodiazepine, and THC. Current Medications: Reviewed. Impression: 1.Acute kidney injury versus underlying chronic kidney disease with unknown baseline. 2.Electrolyte abnormalities including hypernatremia from apparent dehydration. 3.Acute respiratory failure secondary to altered mental status. 4.Polysubstance abuse/overdose. Plan: Mr. Dunbar at this point will require continued IV fluids. This patient likely is volume dep leted prior to admission. It is unknown what the baseline renal function he has. I do not see any e vidence of infectious or inflammatory evidence. I believe that the hematuria that we noticed, is lik eduardo traumatic from Jj insertion. Avoid all NSAIDs and minimize any iodinated contrast exposure. Followup labs will be drawn now to assess electrolyte balance. If sodium is risen, then the patient will need to be on hypotonic fluid half NS at 100 mL/h would be adequate. If sodium levels have impr joanne, then can continue NS as the patient will need volume support as he is intubated. Will have sta ff contact me when followup labs are here. Renal dose all medications. If antibiotics are continued, then please ensure that the appropriate le jazmine monitoring is undertaken. Dr. Fuentes, thank you for the consultation. Contact me anytime with any questions or concerns. /DONNA Voice ID: [id number] Report ID: [id number]
[2019-06-04 19:41] LABS: Hematocrit 41.4 % (39.6-49.0)
[2019-06-05 00:08] LABS: Hematocrit 39.6 % (39.6-49.0)
[2019-06-05] MEDS: LORazepam 2 MG/ML VIAL IV PRN ×2 (00:21→08:51)
[2019-06-05] MEDS: OCTREOTIDE 500 MCG in NA CHLORIDE 0.9% 500 ML IV SCH ×3 (02:50→22:09)
[2019-06-05] MEDS: PANTOPRAZOLE INJ 80 MG in NA CHLORIDE 0.9% 250 ML IV SCH ×3 (02:51→22:40)
[2019-06-05 03:48] VITALS: BMI 20.6
[2019-06-05 04:23] LABS: Absolute Lymphocytes (CBC) 0.6 K/uL (0.7-4.9); Basophils % 0.7 % (0-1.3); Hematocrit 40.6 % (39.6-49.0); Lymphocytes % 5.7 % (15.3-44.8); MPV 8.9 fL (7.6-11.3); RBC Red Blood Cell Count 4.31 M/uL (4.33-5.43)
[2019-06-05 04:50] LABS: Albumin 3.2 g/dL (3.4-5.0); Bilirubin Total 0.6 mg/dL (0.2-1.0); Potassium 4.2 mmol/L (3.5-5.1); Protein, Total 6.2 g/dL (6.4-8.2)
[2019-06-05] MEDS: propofoL 1,000 MG/100 ML VIAL IV PRN ×2 (05:05→08:51)
[2019-06-05] MEDS: FENTANYL CITR 100 MCG/2 ML IV PRN ×2 (05:30→13:31)
[2019-06-05 05:54] LABS: Arterial Blood Carboxyhemoglob 0.8 % (0-1.5); Blood Gas Oxyhemoglobin 96.4 % (94-97); Blood O2 Saturation 98.3 % (92-98.5)
[2019-06-05] MEDS: NA CHLORIDE 0.9% 1,000 ML IV SCH (06:21)
[2019-06-05 06:53] LABS: Blood Morphology Comment NOT SEEN (NOT SEEN); Platelet Estimate ADEQ; Urine White Blood Cell Casts OK
--- NOTE | 2019-06-05 07:40 | EKG ---
Test Date: 2019-06-04 Test Time: 05:13:50 [employer] Operator: KWAME MEASUREMENT RESULTS: Intervals: Rate: 107 GA: 132 QRSD: 88 QT: 340 QTc: 453 [place]: P: 77 GA: 132 QRS: 85 T: 73 INTERPRETIVE STATEMENTS: Sinus tachycardia Otherwise normal ECG No previous ECG available for comparison Electronically Signed On 06-05-19 07:38:55 CDT by Jose F Montes
[2019-06-05 08:08] LABS: Hematocrit 38.4 % (39.6-49.0)
--- NOTE | 2019-06-05 08:39 | P.DS ---
Admission Date: 06/04/19 Discharge Date: 06/05/19 Disposition: TRANSFER TO [facility] Discharge Condition: FAIR Reason for Admission: Drug overdose Consultations: Nephrology Dr. Torres Resin Mixer Dr. Alexandre Brief History of Present Illness: History is limited due to patient's medical condition. Due to current pandemic no family is at the bedside either. Information is gathered from previous records ER physician and staff. Patient is an unidentified male came in from from a hotel via EMS for being diaphoretic tachypneic tachycardic. Patient apparently has suspected drug overdose with Ativan. Patient was altered and subsequently required intubation. [place] [address]. UDS was positive for benzodiazepines, amphetamines and marijuana. Tylenol level was negative as well as the alcohol level. His influenza screen pro calcitonin and lactate were negative. ABG showed acidosis with pH of 7.1. Chest x-ray showed some right lobe changes. Patient had to be reintubated due to hypoxia and bradycardia. Repeat chest x-ray showed improvement. Head CT scan was also negative. Due to his symptoms and chest x-ray changes patient is also being tested for COVID 19 and is a person under investigation. Patient was referred for admission HPI: Patient more awake and alert now. Writing everything down for the nurses. Patient states that he was in a hotel usually uses meth recreationally and is on Valium by his PCP for panic attack and anxiety. He felt that the [facility] were coming and therefore took 4 g of meth and 30 Valium states that he was not trying to hurt himself. Apparently someone saw him laying on the bed therefore alerted the hotel staff who subsequently called [facility] and EMS. He locked himself in the bathroom and apparently fell and hurt his left shoulder on the bathtub. complains of left shoulder pain. Chest X-ray did not show any dislocation. Hospital Course: Patient is a 39-year-old male with history of generalized anxiety and apparent history of GI bleed and ulcers in the past who was found down at a motel apparently had ingested 30 pills of Valium and 4 g of methamphetamine. Poison control was contacted by the ER. They agreed with current management. Patient was unable to protect his airway and was intubated and required subsequent re- intubation due to bradycardia and hypoxia. Pulmonology was consulted for ventilation management. X-ray showed some right lobe infiltrate likely aspiration type pneumonia. Patient was started on IV fluids and IV antibiotics. Cultures were obtained which are negative to date. Influenza screen was also negative. Due to patient's unclear history and pneumonia patient was tested for COVID19 which was negative. Patient also had acute kidney injury and was started on IV fluids. Kidney function improved. Nephrology was also consulted. Patient was able to the be weaned off of the sedation and was able to provide history. Subsequently patient had coffee-ground and andres bloody discharge from the NG tube. No GI was available. Patient's hemoglobin dropped approximately 2 g from baseline. Due to his acute GI bleed. patient was started on Protonix drip and Sandostatin drip. CT scan of the abdomen was negative for any acute changes. Patient was maintained on the ventilator in case of hemodynamic instability and to avoid need for re-intubation as he was still under investigation for COVID19 And to minimize exposure from risk of reintubation. Transfer was initiated to [facility] and was accepted by the appraisal coordinator Dr. Almazan. patient will be transferred once bed is available. 1. Acute respiratory failure with hypoxia and hypercapnia. 2. Acute upper GI bleed with blood loss anemia. 3. Acute metabolic encephalopathy. likely secondary to drug overdose. Patient is responsive on the ventilator. UDS positive for benzos amphetamines and marijuana. Improved 4. Person under investigation for COVID 19. Negative test result 5. Drug overdose with benzodiazepines amphetamines and marijuana. Tylenol level is negative. Alcohol level is negative. Currently intubated breathing over the vent but will require sedation. 6. Right lobe pneumonia likely secondary to aspiration versus COVID19. on antibiotics with azithromycin and Rocephin, Flagyl 7. Acute kidney injury. Likely due to prerenal azotemia. Consult nephrology. Continue with IV fluids. Monitor creatinine. Avoid NSAIDs. Improved 8. Hypoglycemia. Patient is given amp of D50. Will monitor Vital Signs/Physical Exam: Temp Pulse Resp BP Pulse Ox 98.6 F 71 14 115/70 100 06/05/19 08:00 06/05/19 08:00 06/05/19 08:00 06/05/19 08:00 06/05/19 08:00 General: Alert, In no apparent distress, Other (Able to nod yes or no when off sedation) HEENT: Atraumatic, PERRLA, EOMI Neck: Supple, JVD not distended Respiratory: Diminished, Other (No wheezing or stridor) Cardiovascular: No edema, Normal pulses, Regular rate/rhythm, Normal S1 S2 Gastrointestinal: Normal bowel sounds, Soft and benign, Non-distended, No tenderness Musculoskeletal: No tenderness Integumentary: No rashes Neurological: Normal strength at 5/5 x4 extr, Normal tone, Normal affect Laboratory Data at Discharge: WBC 11.1 K/uL (4.3-10.9) H D 06/05/19 04:13 Hgb 12.8 g/dL (13.6-17.9) L 06/05/19 07:40 Hct 38.4 % (39.6-49.0) L 06/05/19 07:40 Plt Count 185 K/uL (152-406) D 06/05/19 04:13 PT 11.8 SECONDS (9.5-12.5) 06/04/19 05:15 PT Cancelled 06/04/19 05:15 INR 1.00 06/04/19 05:15 INR Cancelled 06/04/19 05:15 APTT 29.2 SECONDS (24.3-36.9) 06/04/19 05:15 APTT Cancelled 06/04/19 05:15 Sodium 145 mmol/L (136-145) 06/05/19 04:13 Potassium 4.2 mmol/L (3.5-5.1) 06/05/19 04:13 BUN 15 mg/dL (7-18) 06/05/19 04:13 Creatinine 1.25 mg/dL (0.55-1.3) 06/05/19 04:13 Glucose 91 mg/dL (74-106) 06/05/19 04:13 Total Bilirubin 0.6 mg/dL (0.2-1.0) 06/05/19 04:13 AST 149 U/L (15-37) H D 06/05/19 04:13 ALT 59 U/L (12-78) 06/05/19 04:13 Alkaline Phosphatase 43 U/L (45-117) L 06/05/19 04:13 Lipase 75 U/L (73-393) 06/04/19 06:35 Imagings Data: EXAM DESCRIPTION: CT - Abdomen Pelvis Wo Contrast - 06/04/2019 4:01 pm CLINICAL HISTORY: Abdominal pain. gi bleed COMPARISON: No comparisons TECHNIQUE: CT imaging of the abdomen and pelvis was performed without contrast. Solid organ, bowel and vascular assessment is limited due to lack of IV and oral contrast. All CT scans are performed using dose optimization technique as appropriate and may include automated exposure control or mA/KV adjustment according to patient size. FINDINGS: Airspace opacity is identified in the right posterior gutter which may represent aspiration or infiltrate/ pneumonia. Enteric tube tip is just entering the stomach. The liver, spleen, pancreas, adrenal glands and kidneys are within normal limits for a limited non-contrast examination. No bowel obstruction, free air, free fluid or abscess. The appendix is normal. The osseous structures are within normal limits.Jj catheter noted. IMPRESSION: No acute intra-abdominal or pelvic findings. Airspace opacity in the posterior right base may represent aspiration or infiltrate/ pneumonia. A limited non-contrast examination was performed as detailed. Home Medications: diazePAM [Diazepam] 1 tab PO DAILY 06/04/19 Patient Discharge Instructions: Transfer to [facility] for GI service Time spent managing pt's care (in minutes): 43
[2019-06-05] MEDS: CEFTRIAXONE/SWI 1gm 1 GM/10 ML SYR IVP SCH (08:42)
[2019-06-05] MEDS: METRONIDAZOLE 500mg IVPB 500 MG/100 ML BAG IV SCH ×2 (08:42→17:00)
[2019-06-05] MEDS ORDERED: AZITHROMYCIN IV 500 MG in NA CHLORIDE 0.9% 250 ML IVPB SCH (09:00)
--- NOTE | 2019-06-05 09:50 | P.CNS ---
Date of Consult: 06/05/19 Reason for Consult: Respiratory failure drug overdose GI bleeding Chief Complaint: Drug overdose History of Present Illness: Patient is 39 years of age/admitted with drug overdose using multiple drugs and was intubated transferred to the ICU apparently has some GI bleeding is very alert responsive cooperative on a propofol drip Allergies No Known Allergies Allergy (Verified 06/04/19 13:41) Home Medications: diazePAM [Diazepam] 1 tab PO DAILY 06/04/19 - Past Medical/Surgical History Diabetic: No -: Anxiety -: Pnic Disorder -: Wisome teeth exctraction - Social History Alcohol use: Yes CD- Drugs: Yes Caffeine use: Yes Place of Residence: Home Review of Systems is unable to be obtained Physical Examination Temp Pulse Resp BP Pulse Ox 98.6 F 71 14 115/70 100 06/05/19 08:00 06/05/19 08:00 06/05/19 08:00 06/05/19 08:00 06/05/19 08:00 General: Alert, Cooperative Respiratory: Clear to auscultation bilaterally Cardiovascular: No edema, Regular rate/rhythm - Problems (1) Respiratory failure Current Visit: Yes Status: Acute Plan: Patient is 39 years of age admitted with respiratory failure and drug overdose possible GI bleeding slight decline in his hemoglobin hemodynamically stable vital signs stable afebrile blood cultures negative patient's chest x-rays clear minimal infiltrate in the right lower lobe patient hypoxic hypercapnic on admission is not doing well Dc Zithromax chest x-rays clear (2) GI bleed Current Visit: Yes Status: Acute Plan: Possible GI bleed the recommend nasal lavage to see he still has actively continue to monitor his not required any blood transfusions the slight decline in his hemoglobin may be due to hemodilution Qualifiers: GI bleed type/associated pathology: unspecified gastrointestinal hemorrhage type Qualified Code(s): K92.2 - Gastrointestinal hemorrhage, unspecified
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
[2019-06-05] MEDS: MORPHINE 2 MG/ML SYR IV PRN ×2 (15:05→20:55)
[2019-06-05] MEDS: NACHLORIDE 0.45% 1,000 ML IV SCH (15:07)
--- NOTE | 2019-06-05 15:42 | RAD REPORT ---
EXAM DESCRIPTION: RAD - Shoulder Left 2 View - 06/05/2019 3:05 pm CLINICAL HISTORY: Fall Pain COMPARISON: Chest Single View dated 06/04/2019; Chest Single View dated 06/04/2019; Abdomen Pelvis W o Contrast dated 06/04/2019 TECHNIQUE: Internal and external rotation views of the left shoulder were obtained. FINDINGS: There is no fracture or dislocation. No AC joint separation or acute AC joint finding. Acr omial humeral joint space is slightly narrowed. This is not an acute finding. No abnormal soft tissue calcifications. No acute or destructive finding. NG tube being overlies the left upper chest. IMPRESSION: No fracture, dislocation or acute left shoulder joint finding.
--- NOTE | 2019-06-05 15:45 | RAD REPORT ---
EXAM DESCRIPTION: RAD - Pelvis - 06/05/2019 3:05 pm CLINICAL HISTORY: Fall Pain COMPARISON: Abdomen Pelvis Wo Contrast dated 06/04/2019None. TECHNIQUE: AP imaging of the pelvis was obtained. FINDINGS: No fracture of the bony pelvis. Small bony density superior margin right acetabular rim is fully corticated and not an acute bone process. No fracture, dislocation or other acute hip joint fi nding. No significant SI joint findings. No soft tissue abnormality. Jj catheter in place. IMPRESSION: Negative pelvis for acute or significant findings.
[2019-06-05 16:59] VITALS: O2SAT 100
[2019-06-05 17:11] LABS: Hematocrit 39.3 % (39.6-49.0)
--- NOTE | 2019-06-05 19:15 | PN ---
Date of Progress Note: 06/05/2019 Subjective: Patient is seen at the bedside. Remains in ICU. NG tube is still in place. Patient wa s extubated. Patient is complaining of chronic pain, but denies any new-onset acute pain. Objective: Vital Signs: Blood pressure 130/86, pulse 80, afebrile. Input and output: 3199 in, 116 5 out. General: No acute distress. Heart: Regular rate and rhythm. No murmurs or gallops. Lungs: Clear to auscultation bilaterally. Abdomen: Soft, nontender, nondistended. Positive bowel sounds x4. Extremities: No significant edema. Lines: Jj catheter in place with dark-colored and cloudy urine. Laboratory Data: CBC was reviewed. WBC 11.1, hemoglobin 13.5, hematocrit 40.6, platelet 185. Serum chemistry: Sodium 145, potassium 4.2, chloride 112, CO2 26, BUN is 15, creatinine 1.25. Remainder of labs were reviewed. Current Medications: Normal saline at 100 mL/hour. Patient continues on azithromycin, ceftriaxone, anxiolytics, antipsychotics as needed. Continue on active GI treatment. Impression: 1.Acute kidney injury on chronic kidney disease. 2.Acute respiratory failure. 3.Altered mental status. 4.Abnormal urine. 5.Electrolyte abnormalities. 6.Polysubstance abuse/overdose. Plan: Patient's electrolyte abnormalities resolved. Renal function is improving. IV fluids will be changed to half NS at 75 mL/hour. I have asked for UA to further evaluate patient's urine. Avoid a ll NSAIDs. Avoid all contrast. Continue withdrawal protocols. We will continue to follow. SE/MODL Voice ID: [id number] Report ID: [id number]
[2019-06-05 22:45] LABS: Urine Appearance CLEAR; Urine Bilirubin NEGATIVE (NEG); Urine Blood NEGATIVE (NEG); Urine Color YELLOW; Urine Glucose NEGATIVE (NEG); Urine Protein NEGATIVE (NEG); Urine Specific Gravity 1.025 (1.005-1.030); Urine Urobilinogen 0.2 mg/dL (0.2-1.0); Urine pH 5.5 (5.0-7.0)
[2019-06-05 22:46] LABS: Urine Microscopic Reflex NO UMIC
[2019-06-05] MEDS ORDERED: NITROGLYCERIN 0.4 MG/TAB SL ONE (23:25)
[2019-06-05] MEDS ORDERED: WATER FOR INJ,STERILE 10 ML ONE (23:47)
[2019-06-06 00:04] LABS: Hematocrit 38.1 % (39.6-49.0)
[2019-06-06] MEDS: METRONIDAZOLE 500mg IVPB 500 MG/100 ML BAG IV SCH ×2 (00:32→08:52)
[2019-06-06] MEDS ORDERED: LORazepam 2 MG/ML VIAL IV ONE (03:29)
[2019-06-06] MEDS: MORPHINE 2 MG/ML SYR IV PRN (03:36)
[2019-06-06] MEDS: NACHLORIDE 0.45% 1,000 ML IV SCH (05:25)
[2019-06-06] MEDS ORDERED: ALPRAZOLAM 0.25 MG TABLET PO PRN (07:28)
[2019-06-06] MEDS ORDERED: PANTOPRAZOLE 40MG TABLET PO SCH (07:30)
--- NOTE | 2019-06-06 08:41 | RAD REPORT ---
EXAM DESCRIPTION: RAD - Chest Pa And Lat (2 Views) - 06/06/2019 8:26 am CLINICAL HISTORY: follow up , rule out aspiration COMPARISON: Portable June 03 TECHNIQUE: Frontal and lateral views of the chest were obtained. FINDINGS: The lungs are normal volume. posteromedial right lung base infiltrate present. This could be infectious or aspiration in origin. No cavitation or mass component seen. Mild chronic baseline in terstitial pattern noted. Left lung field is clear. Trachea is midline. Heart size is normal and central vasculature is within normal limits. No pleur al effusion or pneumothorax seen. No acute bony finding noted. No aortic abnormality. IMPRESSION: Small focal pneumonia in the posteromedial right lung base. This could be infectious or aspiration in origin.
[2019-06-06] MEDS: CEFTRIAXONE/SWI 1gm 1 GM/10 ML SYR IVP SCH (08:53)
--- NOTE | 2019-06-06 09:22 | P.DS ---
Admission Date: 06/04/19 Discharge Date: 06/06/19 Primary Care Provider: Dr. Rosen Disposition: ROUTINE DISCHARGE Discharge Condition: GOOD Reason for Admission: Drug overdose Consultations: Pulmonary-Dr. Alexandre Nephrology-Dr. Bird Procedures: CXR: FINDINGS: The lungs are normal volume. posteromedial right lung base infiltrate present. This could be infectious or aspiration in origin. No cavitation or mass component seen. Mild chronic baseline interstitial pattern noted. Left lung field is clear. Trachea is midline. Heart size is normal and central vasculature is within normal limits. No pleural effusion or pneumothorax seen. No acute bony finding noted. No aortic abnormality. IMPRESSION: Small focal pneumonia in the posteromedial right lung base. This could be infectious or aspiration in origin. CT scan: FINDINGS: Airspace opacity is identified in the right posterior gutter which may represent aspiration or infiltrate/ pneumonia. Enteric tube tip is just entering the stomach. The liver, spleen, pancreas, adrenal glands and kidneys are within normal limits for a limited non-contrast examination. No bowel obstruction, free air, free fluid or abscess. The appendix is normal. The osseous structures are within normal limits.Jj catheter noted. IMPRESSION: No acute intra-abdominal or pelvic findings. Airspace opacity in the posterior right base may represent aspiration or infiltrate/ pneumonia. A limited non-contrast examination was performed as detailed. CT Head: FINDINGS: No intracranial hemorrhage, hydrocephalus or extra-axial fluid collection.No areas of brain edema or evidence of midline shift. The paranasal sinuses and mastoids are clear. The calvarium is intact. IMPRESSION: No acute intracranial abnormality. Medical Problem List: Acute respiratory failure with hypoxia and hypercapnia Acute upper GI bleed with blood loss anemia likely related to GERD with history of gastric ulcers Acute metabolic encephalopathy th likely related to drug overdose Drug overdose with benzodiazepine, amphetamines and marijuana Anxiety without suicidal ideation Right lower lobe pneumonia secondary to aspiration Acute renal injury likely from dehydration Hypoglycemia Brief History of Present Illness: 39-year-old male with history of anxiety and GERD with history of GI bleed/ulcers. [place] apparently after ingesting 30 pills of Valium and 4 g of methamphetamine. Patient require intubation to protect his airway along with hypoxia. Suspected aspiration pneumonia was covered. Patient admitted for further evaluation and treatment. Hospital Course: Patient presented with drug overdose. Patient ingested 30 pills of Valium and 4 g of methamphetamine. Patient also positive for marijuana. Patient was intubated upon admission due to acute respiratory failure with hypoxia and hypercapnia. X-ray showed right lower lobe pneumonia likely from aspiration. Patient was given IV fluids and antibiotics. Patient was also treated for acute renal injury likely from dehydration. The patient was admitted to ICU for further evaluation and treatment. During the course of his stay his condition improved. Patient was eventually extubated. Renal function now back to baseline. Patient alert and cooperative. Drug overdose was not intentional. Patient is not suicidal. Patient reported taking the drugs to avoid police from finding it. Patient also had coffee-ground discharge from NG tube. Hemoglobin drop. Patient did not require any transfusion. Patient was started on Protonix and Sandostatin. There was some consideration of sending the patient to [facility] due to possible GI bleed. Transfer was initiated and accepted but patient refused transfer. The patient has done well. He is tolerating a diet. No further coffee-ground emesis noted. At discharge there was some consideration of him seen psychiatry to further evaluate. Patient refused. Patient preferred for this to be done as an outpatient. At discharge patient will continue with Protonix 40 mg daily for GERD. Recommend follow up with GI as an outpatient to further address and monitor. Patient would benefit with EGD in the future to further address. Patient will continue with Augmentin 875 mg 1 pill twice daily for 7 days to cover for aspiration pneumonia. Aspiration precautions will be provided. Recommend recheck chest x-ray in 2-4 weeks to monitor resolution. Recommend no further use of nonsteroidal anti- inflammatories. At discharge will recommend for the patient to see psychiatry to further address and treat his underlying anxiety. Recommend no further use of amphetamines, marijuana. Patient has been taking benzodiazepine-Valium for anxiety. Will recommend to discontinue Valium. A limited supply of Xanax 0.25 mg twice daily as needed for anxiety will be provided. Recommend recommend to wean off benzodiazepines in the future. This can be done with the help of his PCP. Recommend SSRI for anxiety in the future. Patient will need a follow up with his PCP in 1 week to follow up this hospitalization and continue his care. Recommend to recheck lab-CBC and BMP in 1 week to monitors progress. Vital Signs/Physical Exam: Temp Pulse Resp BP Pulse Ox 98.4 F 46 L 16 108/64 100 06/06/19 04:00 06/06/19 06:00 06/06/19 06:00 06/06/19 06:00 06/06/19 06:00 General: Alert, In no apparent distress, Oriented x3, Cooperative HEENT: Atraumatic Neck: Supple Respiratory: Clear to auscultation bilaterally, Normal air movement Cardiovascular: Normal pulses, Regular rate/rhythm Gastrointestinal: Normal bowel sounds, Soft and benign, Non-distended, No masses, No rebound, No guarding Integumentary: No erythema, No warmth, No cyanosis Neurological: Normal speech, Normal strength at 5/5 x4 extr, Normal tone, Normal affect Laboratory Data at Discharge: WBC 11.1 K/uL (4.3-10.9) H D 06/05/19 04:13 Hgb Cancelled 06/06/19 15:30 Hct Cancelled 06/06/19 15:30 Plt Count 185 K/uL (152-406) D 06/05/19 04:13 PT 11.8 SECONDS (9.5-12.5) 06/04/19 05:15 PT Cancelled 06/04/19 05:15 INR 1.00 06/04/19 05:15 INR Cancelled 06/04/19 05:15 APTT 29.2 SECONDS (24.3-36.9) 06/04/19 05:15 APTT Cancelled 06/04/19 05:15 Sodium 145 mmol/L (136-145) 06/05/19 04:13 Potassium 4.2 mmol/L (3.5-5.1) 06/05/19 04:13 BUN 15 mg/dL (7-18) 06/05/19 04:13 Creatinine 1.25 mg/dL (0.55-1.3) 06/05/19 04:13 Glucose 91 mg/dL (74-106) 06/05/19 04:13 Total Bilirubin 0.6 mg/dL (0.2-1.0) 06/05/19 04:13 AST 149 U/L (15-37) H D 06/05/19 04:13 ALT 59 U/L (12-78) 06/05/19 04:13 Alkaline Phosphatase 43 U/L (45-117) L 06/05/19 04:13 Troponin I 0.03 ng/mL (0.0-0.045) 06/05/19 23:49 Lipase 75 U/L (73-393) 06/04/19 06:35 Home Medications: ALPRAZolam [Xanax] 0.25 mg PO BID PRN #5 tab 06/06/19 Amox/Clavulanate [Augmentin 875-125 Tab] 875 mg PO BID #14 tab 06/06/19 Pantoprazole [Protonix Tab*] 40 mg PO DAILY #30 tab 06/06/19 New Medications: Amox/Clavulanate [Augmentin 875-125 Tab] 875 mg PO BID #14 tab Pantoprazole [Protonix Tab*] 40 mg PO DAILY #30 tab ALPRAZolam [Xanax] 0.25 mg PO BID PRN #5 tab PRN Reason: Anxiety Patient Discharge Instructions: 1. Recommend follow up with PCP within 1 week to follow up this hospitalization. 2. Patient presented with drug overdose, unintentional. Patient with history of anxiety without suicidal ideation. Recommend no further use of drugs including amphetamines and marijuana. Recommend follow up with psychiatry as an outpatient to establish care in further address. A limited supply of Xanax 0.25 mg twice daily will be provided to be use as needed for anxiety. Patient would benefit with SSRI in the future. This can be further addressed by his PCP and psychiatry as an outpatient. 3. Patient also presented with acute respiratory failure with hypoxia. Patient has done well. Patient found to have right lower lobe pneumonia secondary to aspiration pneumonia. At discharge patient will continue with Augmentin 875 mg 1 pill twice daily for 7 days. Recommend recheck chest x-ray in 2-4 weeks to monitor resolution. Recommend follow up with his PCP to further address. Education on aspiration prevention will be provided. 4. Patient with suspected GI bleed. Hemoglobin stable. No requirement of transfusion required. At discharge patient will continue with Protonix 40 mg daily. Recommend follow up with GI as an outpatient to further address and monitor. Patient would benefit with EGD in the future to further address. 5. Patient with acute renal injury. This likely from dehydration. This has return back to baseline. Recommend to recheck lab-CBC, BMP in 1 week to monitor his progress. Diet: AHA Activity: Ad michael Time spent managing pt's care (in minutes): 55
[2019-06-06 09:54] VITALS: BP 117/71; TEMP 98.9
== END 2019-06-06 10:00 | disposition home or self-care (01) | DRG 917 ==
LOC: ER 05:17 → ERHOLD 08:27 → EDBD 08:27 → 3RD-ICU 11:41
PROVIDERS: ADMIT Family Medicine; ATTEND Family Medicine
PROC: 5A1945Z Respiratory Ventilation, 24-96 Consecutive Hours (ICD-10-PCS; principal; 2019-06-04)
PROC: 0BH17EZ Insertion of Endotracheal Airway into Trachea, Via Natural or Artificial Opening (ICD-10-PCS; 2019-06-04)
DX: T42.4X1A Poisoning by benzodiazepines, accidental (unintentional), initial encounter (principal); J96.02 Acute respiratory failure with hypercapnia; J96.01 Acute respiratory failure with hypoxia; G92 Toxic encephalopathy; J69.0 Pneumonitis due to inhalation of food and vomit; N17.9 Acute kidney failure, unspecified; K92.0 Hematemesis; E87.0 Hyperosmolality and hypernatremia; F17.200 Nicotine dependence, unspecified, uncomplicated; Z20.828 Contact with and (suspected) exposure to other viral communicable diseases; T40.7X1A Poisoning by cannabis (derivatives), accidental (unintentional), initial encounter; E16.2 Hypoglycemia, unspecified; N18.9 Chronic kidney disease, unspecified; E86.0 Dehydration; R31.9 Hematuria, unspecified; D50.0 Iron deficiency anemia secondary to blood loss (chronic); M25.559 Pain in unspecified hip; M25.519 Pain in unspecified shoulder; K21.9 Gastro-esophageal reflux disease without esophagitis
CPT/HCPCS: 31500; 36415; 70450; 71045; 71046; 72170; 74176; 80048; 80053; 80076; 80307; 80320; 80329; 81003; 81015; 82550; 82728; 82805; 82947; 83605; 83690; 84145; 84484; 85014; 85018; 85025; 85379; 85610; 85730; 86140; 86850; 86900; 86901; 87040; 87070; 87081; 87086; 87088; 87804; 93005; 94002; 94003; 99291; 99292; C9113; J0330; J0456; J0696; J2250; J2270; J2310; J2354; J2704; J3010; J7030; J7040; U0002